=== PATIENT | female | born 1960 | race Caucasian/White ===

== ENCOUNTER → 2021-11-05 | Outpatient (CLI) | payer BC | LOC: KOH-I 10-31 10:45 | DX: S83.241A Other tear of medial meniscus, current injury, right knee, initial encounter (principal); S83.011A Lateral subluxation of right patella, initial encounter; M23.41 Loose body in knee, right knee; R93.6 Abnormal findings on diagnostic imaging of limbs | CPT/HCPCS: 73721 ==

== ENCOUNTER → 2022-01-03 | Day surgery (SDC) | payer BC ==
[~2022-01-03] VITALS: Ht 162.6 cm; Wt 83.5 kg
[~2022-01-03] MED LIST: BUTALBIT-ACETA1 EACH PO; HYDROCODON-ACE1 EAC2 PO; MAGNESIUM200 MG PO; TYLENOL EXTRA500 MG PO; VITAMIN D310 MC2 PO
== END | disposition home or self-care (01) ==
LOC: OR 05:13
DX: S83.241A Other tear of medial meniscus, current injury, right knee, initial encounter (principal); S83.281A Other tear of lateral meniscus, current injury, right knee, initial encounter; M17.11 Unilateral primary osteoarthritis, right knee; M23.41 Loose body in knee, right knee; M22.41 Chondromalacia patellae, right knee; E78.5 Hyperlipidemia, unspecified; Z88.0 Allergy status to penicillin; I34.1 Nonrheumatic mitral (valve) prolapse; Z86.69 Personal history of other diseases of the nervous system and sense organs; X50.3XXA Overexertion from repetitive movements, initial encounter; Z20.822 Contact with and (suspected) exposure to COVID-19
CPT/HCPCS: J0171; J0690; J1100; J1885; J2001; J2250; J2405; J2704; J3010; J7120